=== PATIENT | female | born 1950 | race Caucasian/White ===

== ENCOUNTER 2022-05-31 17:24 | Emergency (ER) | payer OTHER, MEDICARE ==
[~2022-05-31] VITALS: Ht 152.4 cm; Wt 57.6 kg
[2022-05-31 17:27] VITALS: BP_SYST 131
[2022-05-31 18:36] LABS: BASOPHILS % (AUTO) 0.2 % (0.0-2.0); EOSINOPHILS # (AUTO) 0.1 K/uL (0.0-0.4); EOSINOPHILS % (AUTO) 1.7 % (0.0-4.0); HEMATOCRIT 41.7 % (36-48); HEMOGLOBIN 14.5 g/dL (12.0-16.0); LYMPHOCYTES # (AUTO) 1.1 K/uL (1.0-5.5); LYMPHOCYTES % (AUTO) 14.9 % (20.5-51.5); MEAN CORPUSCULAR HEMOGLOBIN 33 pg (27-31); MEAN CORPUSCULAR HGB CONC 35 % (32-36); MEAN CORPUSCULAR VOLUME 93 fL (79.0-98.0); MONOCYTES # (AUTO) 0.8 K/uL (0.0-1.0); MONOCYTES % (AUTO) 10.4 % (1.7-9.3); NEUTROPHILS # (AUTO) 5.4 K/uL (1.8-7.7); NEUTROPHILS % (AUTO) 72.8 % (40.0-70.0); PLATELET COUNT (AUTO) 218 K/uL (130-430); RED BLOOD CELL COUNT(AUTO) 4.46 MIL/uL (4.2-6.2); RED CELL DISTRIBUTION WIDTH 12.1 % (9.0-15.0); WHITE BLOOD COUNT (AUTO) 7.4 K/uL (4.8-10.8)
[2022-05-31 18:45] LABS: ANION GAP 5 (5-15); CALCIUM 8.9 mg/dL (8.4-11.0); CHLORIDE 106 mmol/L (98-107); CREATININE 0.95 mg/dL (0.55-1.30); GLUCOSE 94 mg/dL (70-99); UREA NITROGEN, BLOOD 18 mg/dL (8-21)
[2022-05-31 18:52] LABS: ALANINE AMINOTRANSFERASE 29 U/L (12-78); ALBUMIN 3.1 g/dL (3.4-4.8); ASPARTATE AMINOTRANSFERASE 18 U/L (10-37); TOTAL BILIRUBIN 0.4 mg/dL (0.0-1.0)
[2022-05-31 19:40] VITALS: BP_SYST 131
--- NOTE | 2022-05-31 19:40 | NUR ---
Patient given written and verbal discharge instructions and verbalizes understanding. ER MD discussed with patient the results and treatment provided. Patient in stable condition. ID arm band removed. Patient educated on pain management and to follow up with PMD. Pain Scale 0/10. Opportunity for questions provided and answered.
== END 2022-05-31 19:40 | disposition home or self-care (01) ==
LOC: SED 17:24
DX: R07.89 Other chest pain (principal); R11.0 Nausea; Z88.0 Allergy status to penicillin; Z88.8 Allergy status to other drugs, medicaments and biological substances; Z91.041 Radiographic dye allergy status; Z79.899 Other long term (current) drug therapy
CPT/HCPCS: 36415; 71045; 80053; 83880; 84484; 85025; 93005; 99285

== ENCOUNTER 2022-08-29 05:46 | Inpatient (IN) | payer OTHER, MEDICARE ==
[~2022-08-29] VITALS: Ht 152.4 cm; Wt 59.9 kg
[2022-08-29 05:50] VITALS: BP_SYST 147
[2022-08-29] MEDS ORDERED: ONDANSETRON HCL 4 MG/2 ML VIAL IVP ONE (06:00)
[2022-08-29] MEDS ORDERED: NACL 0.9% 1,000 ML IV ONE (06:00)
[2022-08-29] MEDS ORDERED: KETOROLAC TROMETHAMINE 30 MG VIAL IVP ONE (06:00)
[2022-08-29 06:32] LABS: BASOPHILS % (AUTO) 0.4 % (0.0-2.0); EOSINOPHILS # (AUTO) 0.1 K/uL (0.0-0.4); EOSINOPHILS % (AUTO) 1.5 % (0.0-4.0); HEMATOCRIT 46.4 % (36-48); HEMOGLOBIN 15.5 g/dL (12.0-16.0); LYMPHOCYTES # (AUTO) 0.6 K/uL (1.0-5.5); MEAN CORPUSCULAR HEMOGLOBIN 32 pg (27-31); MEAN CORPUSCULAR HGB CONC 34 % (32-36); MEAN CORPUSCULAR VOLUME 96 fL (79.0-98.0); MONOCYTES # (AUTO) 0.5 K/uL (0.0-1.0); MONOCYTES % (AUTO) 8.6 % (1.7-9.3); NEUTROPHILS % (AUTO) 80.5 % (40.0-70.0); PLATELET COUNT (AUTO) 165 K/uL (130-430); RED BLOOD CELL COUNT(AUTO) 4.83 MIL/uL (4.2-6.2); RED CELL DISTRIBUTION WIDTH 13.5 % (9.0-15.0); WHITE BLOOD COUNT (AUTO) 6.2 K/uL (4.8-10.8)
[2022-08-29 06:49] LABS: BILIRUBIN,URINE NEGATIVE (NEGATIVE); CLARITY/URINE CLEAR (CLEAR); COLOR,URINE YELLOW (YELLOW); GLUCOSE,URINE NEGATIVE (NEGATIVE); KETONES,URINE NEGATIVE (NEGATIVE); LEUKOCYTE ESTERASE ,URINE NEGATIVE (NEGATIVE); NITRITE, URINE NEGATIVE (NEGATIVE); PROTEIN URINE 1+ (NEGATIVE); UROBILINOGEN,URINE 0.2 (0.2-1.0)
[2022-08-29 06:50] LABS: BLOOD, URINE TRACE (NEGATIVE)
[2022-08-29 07:00] LABS: BACTERIA,URINE RARE /HPF (None Seen); RBC,URINE 0-3 /HPF (0-3); WBC,URINE 0-3 /HPF (0-3)
[2022-08-29 07:01] LABS: MUCUS,URINE 1+ /LPF (None Seen)
[2022-08-29 07:02] LABS: ANION GAP 7 (5-15); CALCIUM 8.6 mg/dL (8.4-11.0); CHLORIDE 104 mmol/L (98-107); GLUCOSE 135 mg/dL (70-99); UREA NITROGEN, BLOOD 15 mg/dL (8-21)
[2022-08-29 07:15] LABS: ALANINE AMINOTRANSFERASE 466 U/L (12-78); ALBUMIN 3.5 g/dL (3.4-4.8); ASPARTATE AMINOTRANSFERASE 392 U/L (10-37); TOTAL BILIRUBIN 1.5 mg/dL (0.0-1.0)
[2022-08-29 07:16] LABS: LIPASE 8721 U/L (73-393)
[2022-08-29] MEDS ORDERED: SYN50 PO (08:30)
[2022-08-29] MEDS ORDERED: MORPHINE 4 MG INJ. 4 MG/ML VIAL IVP PRN (08:30)
[2022-08-29] MEDS ORDERED: FAMO20TA8 PO (08:30)
[2022-08-29] MEDS: NACL 0.9% 1,000 ML IV SCH ×2 (10:05→20:37)
[2022-08-29] MEDS ORDERED: metroNIDAZOLE 500 mg/NS 100 ML IV ONE (11:00)
[2022-08-29] MEDS ORDERED: CIPROFLOXACIN LACT 400 MG/D5W 200 ML IV ONE (11:00)
[2022-08-29 11:21] VITALS: BP_SYST 152
[2022-08-29 18:24] VITALS: BP_SYST 126
[2022-08-29] MEDS: KETOROLAC TROMETHAMINE 15 MG VIAL IVP SCH ×2 (18:26→23:22)
[2022-08-29 20:00] VITALS: BP_SYST 136
[2022-08-29] MEDS: CIPROFLOXACIN LACT 400 MG/D5W 200 ML IV SCH (20:38)
[2022-08-30 01:10] VITALS: BP_SYST 140
[2022-08-30] MEDS: KETOROLAC TROMETHAMINE 15 MG VIAL IVP SCH ×3 (05:37→23:15)
[2022-08-30] MEDS: NACL 0.9% 1,000 ML IV SCH ×2 (05:40→16:05)
[2022-08-30] MEDS: LEVOTHYROXINE SODIUM 0.05 MG TABLET PO SCH (06:50)
[2022-08-30 07:27] LABS: BASOPHILS % (AUTO) 0.4 % (0.0-2.0); EOSINOPHILS # (AUTO) 0.1 K/uL (0.0-0.4); EOSINOPHILS % (AUTO) 2.6 % (0.0-4.0); HEMATOCRIT 43.6 % (36-48); HEMOGLOBIN 14.6 g/dL (12.0-16.0); LYMPHOCYTES % (AUTO) 18.3 % (20.5-51.5); MEAN CORPUSCULAR HEMOGLOBIN 33 pg (27-31); MEAN CORPUSCULAR HGB CONC 34 % (32-36); MEAN CORPUSCULAR VOLUME 97 fL (79.0-98.0); MONOCYTES # (AUTO) 0.5 K/uL (0.0-1.0); NEUTROPHILS # (AUTO) 3.8 K/uL (1.8-7.7); NEUTROPHILS % (AUTO) 69.7 % (40.0-70.0); PLATELET COUNT (AUTO) 145 K/uL (130-430); RED BLOOD CELL COUNT(AUTO) 4.47 MIL/uL (4.2-6.2); RED CELL DISTRIBUTION WIDTH 13.1 % (9.0-15.0); WHITE BLOOD COUNT (AUTO) 5.5 K/uL (4.8-10.8)
[2022-08-30 07:44] LABS: PROTHROMBIN TIME 10.1 SECS (9.5-12.5)
[2022-08-30 08:00] VITALS: BP_SYST 144
[2022-08-30 08:01] LABS: ALANINE AMINOTRANSFERASE 306 U/L (12-78); ALBUMIN 3.1 g/dL (3.4-4.8); ANION GAP 7 (5-15); ASPARTATE AMINOTRANSFERASE 137 U/L (10-37); CALCIUM 8.2 mg/dL (8.4-11.0); CHLORIDE 107 mmol/L (98-107); CREATININE 0.79 mg/dL (0.55-1.30); GLUCOSE 87 mg/dL (70-99); LIPASE 478 U/L (73-393); TOTAL BILIRUBIN 0.9 mg/dL (0.0-1.0); UREA NITROGEN, BLOOD 9 mg/dL (8-21)
[2022-08-30] MEDS: CIPROFLOXACIN LACT 400 MG/D5W 200 ML IV SCH ×2 (10:02→23:15)
[2022-08-30 12:00] VITALS: BP_SYST 151
[2022-08-30] MEDS: ACETAMINOPHEN 325 MG TABLET PO PRN (15:05)
[2022-08-30 16:00] VITALS: BP_SYST 159
[2022-08-30 20:00] VITALS: BP_SYST 155
[2022-08-31] VITALS: BP_SYST 154
[2022-08-31] MEDS: NACL 0.9% 1,000 ML IV SCH ×3 (02:48→17:20)
[2022-08-31 05:31] LABS: BASOPHILS % (AUTO) 0.4 % (0.0-2.0); EOSINOPHILS # (AUTO) 0.2 K/uL (0.0-0.4); EOSINOPHILS % (AUTO) 3.1 % (0.0-4.0); HEMATOCRIT 42.7 % (36-48); HEMOGLOBIN 14.4 g/dL (12.0-16.0); LYMPHOCYTES # (AUTO) 0.9 K/uL (1.0-5.5); LYMPHOCYTES % (AUTO) 16.9 % (20.5-51.5); MEAN CORPUSCULAR HEMOGLOBIN 32 pg (27-31); MEAN CORPUSCULAR HGB CONC 34 % (32-36); MEAN CORPUSCULAR VOLUME 96 fL (79.0-98.0); MONOCYTES # (AUTO) 0.4 K/uL (0.0-1.0); MONOCYTES % (AUTO) 8.4 % (1.7-9.3); NEUTROPHILS # (AUTO) 3.7 K/uL (1.8-7.7); NEUTROPHILS % (AUTO) 71.2 % (40.0-70.0); PLATELET COUNT (AUTO) 147 K/uL (130-430); RED BLOOD CELL COUNT(AUTO) 4.45 MIL/uL (4.2-6.2); WHITE BLOOD COUNT (AUTO) 5.1 K/uL (4.8-10.8)
[2022-08-31 06:04] LABS: ALANINE AMINOTRANSFERASE 206 U/L (12-78); ANION GAP 10 (5-15); ASPARTATE AMINOTRANSFERASE 56 U/L (10-37); CHLORIDE 107 mmol/L (98-107); CREATININE 0.72 mg/dL (0.55-1.30); GLUCOSE 92 mg/dL (70-99); LIPASE 155 U/L (73-393); TOTAL BILIRUBIN 0.9 mg/dL (0.0-1.0); UREA NITROGEN, BLOOD 8 mg/dL (8-21)
[2022-08-31] MEDS: LEVOTHYROXINE SODIUM 0.05 MG TABLET PO SCH (06:23)
[2022-08-31] MEDS: KETOROLAC TROMETHAMINE 15 MG VIAL IVP SCH ×3 (06:23→17:27)
[2022-08-31 08:00] VITALS: BP_SYST 161
[2022-08-31] MEDS: CIPROFLOXACIN LACT 400 MG/D5W 200 ML IV SCH ×2 (09:52→21:10)
[2022-08-31] MEDS ORDERED: hydrALAZINE HCL 20 MG/ML VIAL IVP PRN (11:15)
[2022-08-31] MEDS ORDERED: POTASSIUM CHLORIDE 40 MEQ, LIDOCAINE JECT 2% PF 100 MG 50 MG in NS 250 ML IV ONE (11:30)
[2022-08-31 11:45] VITALS: BP_SYST 162
[2022-08-31 13:30] VITALS: BP_SYST 145
[2022-08-31 20:00] VITALS: BP_SYST 131
[2022-08-31] MEDS: ACETAMINOPHEN 325 MG TABLET PO PRN (21:10)
[2022-08-31 23:30] VITALS: BP_SYST 145
[2022-09-01] VITALS (9 sets, daily range): BP systolic 144–160
[2022-09-01] MEDS: KETOROLAC TROMETHAMINE 15 MG VIAL IVP SCH ×4 (00:05→23:29)
[2022-09-01] MEDS: NACL 0.9% 1,000 ML IV SCH ×2 (04:40→18:29)
[2022-09-01] MEDS: LEVOTHYROXINE SODIUM 0.05 MG TABLET PO SCH (06:34)
[2022-09-01] MEDS: CIPROFLOXACIN LACT 400 MG/D5W 200 ML IV SCH ×2 (08:12→23:29)
[2022-09-01 09:01] LABS: ALANINE AMINOTRANSFERASE 164 U/L (12-78); ALBUMIN 3.3 g/dL (3.4-4.8); ANION GAP 8 (5-15); ASPARTATE AMINOTRANSFERASE 35 U/L (10-37); BILIRUBIN,DIRECT 0.2 mg/dL (0.0-0.3); CALCIUM 8.5 mg/dL (8.4-11.0); CHLORIDE 106 mmol/L (98-107); CREATININE 0.78 mg/dL (0.55-1.30); GLUCOSE 95 mg/dL (70-99); UREA NITROGEN, BLOOD 10 mg/dL (8-21)
[2022-09-01] MEDS ORDERED: HYDROmorphone 1 MG/ML INJ. CARTRIDGE IVP PRN ×2 (20:15→21:15)
[2022-09-01] MEDS ORDERED: HYDROcodone/ACETAMIN 5-325 MG TAB (NORCO/ VICODIN) PO PRN (20:15)
[2022-09-01] MEDS ORDERED: NEOSTIGMINE METHYLSULFATE 1 MG/ML, 10 ML VIAL ONE (20:30)
[2022-09-01] MEDS ORDERED: METOCLOPRAMIDE HCL 10 MG/2 ML VIAL ONE (20:30)
[2022-09-01] MEDS ORDERED: ONDANSETRON HCL 4 MG/2 ML VIAL ONE (20:30)
[2022-09-01] MEDS ORDERED: SEVOFLURANE 15 MIN GAS INH ONE (20:30)
[2022-09-01] MEDS ORDERED: NS 1000 ML IV.SOLN IV ONE (20:30)
[2022-09-01] MEDS ORDERED: ceFAZolin SODIUM 2 GM VIAL ONE (20:30)
[2022-09-01] MEDS ORDERED: GLYCOPYRROLATE 0.2 MG/ML VIAL ONE (20:30)
[2022-09-01] MEDS ORDERED: ROCURONIUM BROMIDE 10 MG/ML (ZEMURON) ONE (20:30)
[2022-09-01] MEDS ORDERED: KETOROLAC TROMETHAMINE 30 MG VIAL ONE (20:30)
[2022-09-01] MEDS ORDERED: LIDOCAINE/EPI MPF 1%1:200000 30 ML VIAL ONE (20:30)
[2022-09-01] MEDS ORDERED: BUPIVACAINE /PF 0.25% 30 ML VIAL INJ ONE (20:30)
[2022-09-01] MEDS ORDERED: fentaNYL CITRATE/PF 100 MCG/2 ML AMP ONE (20:30)
[2022-09-01] MEDS ORDERED: PROPOFOL 200MG/ 20ML VIAL (DIPRIVAN) IV ONE (20:30)
[2022-09-01] MEDS ORDERED: SUCCINYLCHOLINE CHLORIDE 20 MG/ML(QUELICIN) ONE (20:30)
[2022-09-01] MEDS ORDERED: KETOROLAC TROMETHAMINE 30 MG VIAL IVP PRN (21:15)
[2022-09-01] MEDS ORDERED: HYDROmorphone 2 MG/ML VIAL IVP PRN (21:15)
[2022-09-01] MEDS ORDERED: LR 1,000 ML IV SCH (21:15)
[2022-09-01] MEDS ORDERED: ONDANSETRON HCL 4 MG/2 ML VIAL IVP PRN (21:15)
[2022-09-01] MEDS: KETOROLAC TROMETHAMINE 30 MG VIAL ONE ×2 (22:32→23:29)
[2022-09-02 05:29] LABS: BASOPHILS % (AUTO) 0.2 % (0.0-2.0); EOSINOPHILS % (AUTO) 0.5 % (0.0-4.0); HEMATOCRIT 40.4 % (36-48); HEMOGLOBIN 13.7 g/dL (12.0-16.0); LYMPHOCYTES # (AUTO) 0.7 K/uL (1.0-5.5); MEAN CORPUSCULAR HEMOGLOBIN 32 pg (27-31); MEAN CORPUSCULAR HGB CONC 34 % (32-36); MEAN CORPUSCULAR VOLUME 95 fL (79.0-98.0); MONOCYTES # (AUTO) 0.7 K/uL (0.0-1.0); MONOCYTES % (AUTO) 8.2 % (1.7-9.3); NEUTROPHILS # (AUTO) 6.9 K/uL (1.8-7.7); NEUTROPHILS % (AUTO) 83.1 % (40.0-70.0); PLATELET COUNT (AUTO) 147 K/uL (130-430); RED BLOOD CELL COUNT(AUTO) 4.23 MIL/uL (4.2-6.2); RED CELL DISTRIBUTION WIDTH 12.8 % (9.0-15.0); WHITE BLOOD COUNT (AUTO) 8.3 K/uL (4.8-10.8)
[2022-09-02 05:57] LABS: ANION GAP 10 (5-15); CALCIUM 7.9 mg/dL (8.4-11.0); CHLORIDE 103 mmol/L (98-107); CREATININE 0.74 mg/dL (0.55-1.30); GLUCOSE 100 mg/dL (70-99); UREA NITROGEN, BLOOD 9 mg/dL (8-21)
[2022-09-02] MEDS: NACL 0.9% 1,000 ML IV SCH (06:21)
[2022-09-02] MEDS: KETOROLAC TROMETHAMINE 15 MG VIAL IVP SCH (06:21)
[2022-09-02] MEDS: LEVOTHYROXINE SODIUM 0.05 MG TABLET PO SCH (06:21)
[2022-09-02] MEDS ORDERED: POTASSIUM CHLORIDE 20 MEQ TAB.PRT.SR PO ONE (08:00)
[2022-09-02] MEDS ORDERED: HYDR-3917 PO (08:17)
[2022-09-02 08:45] VITALS: BP_SYST 132
[2022-09-02] MEDS: CIPROFLOXACIN LACT 400 MG/D5W 200 ML IV SCH (09:09)
[2022-09-02 11:15] VITALS: BP_SYST 139
[2022-09-02 11:31] VITALS: BP_SYST 139
== END 2022-09-02 12:10 | disposition home or self-care (01) | DRG 417 ==
LOC: SED 05:46 → STU 08:46 → SMU 11:14
PROVIDERS: ADMIT Family Medicine; ATTEND Family Medicine
PROC: 0DNU4ZZ Release Omentum, Percutaneous Endoscopic Approach (ICD-10-PCS; 2022-09-01)
PROC: 0FT44ZZ Resection of Gallbladder, Percutaneous Endoscopic Approach (ICD-10-PCS; principal; 2022-09-01 20:30)
DX: K80.00 Calculus of gallbladder with acute cholecystitis without obstruction (principal); K85.10 Biliary acute pancreatitis without necrosis or infection; E03.9 Hypothyroidism, unspecified; R79.89 Other specified abnormal findings of blood chemistry; K21.9 Gastro-esophageal reflux disease without esophagitis; Z20.822 Contact with and (suspected) exposure to COVID-19; Z88.0 Allergy status to penicillin; Z88.6 Allergy status to analgesic agent
CPT/HCPCS: 36415; 71045; 74181; 76376; 76700-TC; 80048; 80053; 80076; 81000; 83690; 83880; 84484; 85025; 85610-TC; 85730-TC; 88304; 93005; 96361; 96374; 96375; 99285; C1727; J0330; J0360; J0744; J1885; J2405; J2704; J2710; J2765; J3010; J3480; J3490; J7030; J7050

== ENCOUNTER 2022-12-21 08:47 | Emergency (ER) | payer OTHER, MEDICARE ==
[~2022-12-21] VITALS: Ht 152.4 cm; Wt 57.6 kg
[~2022-12-21 08:47] MED LIST: FAMO20TA8 PO; HYDR-3917 PO; SYN50 PO
[2022-12-21 09:03] VITALS: BP_SYST 169; PULSE 88; RESP 19; TEMP 98; O2SAT 98
[2022-12-21] MEDS ORDERED: NAPR-690 PO (10:42)
== END 2022-12-21 10:48 | disposition home or self-care (01) ==
LOC: SED 08:47
DX: S92.354A Nondisplaced fracture of fifth metatarsal bone, right foot, initial encounter for closed fracture (principal); Z88.0 Allergy status to penicillin; Z88.3 Allergy status to other anti-infective agents; Z91.041 Radiographic dye allergy status; Z79.899 Other long term (current) drug therapy; W01.0XXA Fall on same level from slipping, tripping and stumbling without subsequent striking against object, initial encounter; Y93.89 Activity, other specified; Y92.89 Other specified places as the place of occurrence of the external cause; Y99.8 Other external cause status
CPT/HCPCS: 99284